=== PATIENT | male | born 1985 | race Caucasian/White ===

== ENCOUNTER 2019-10-02 11:03 | Observation (INO) ==
--- NOTE | 2019-10-02 11:24 | Emergency Department Note ---
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 The patient was walking back from the [place] when he began experiencing chest pain along with sweating. He then went to the nurses station where the checked an EKG. There was concern that the patient's heart rate was above 200. When the patient laid down for the EKG his symptoms was quickly resolved. EMS was called and the patient was brought here to the emergency department. Patient denies any chest pain currently. He has a family history of his grandfather having bypass when his grandfather was in his 60s. The patient denies smoking. Home Medications Home Medications Medication Instructions Recorded Confirmed Type No Known Home Medications 10/02/19 10/02/19 History Allergies Allergy/AdvReac Type Severity Reaction Status Date / Time No Known Allergies Allergy Unverified 10/02/19 11:46 Past Med/Surg History Social History Feels Safe at Home: Yes Smoking Status: Never smoker Review of Systems A total of 10 systems reviewed and were otherwise negative Physical Exam Vital Signs Vital Signs - 24 hr 10/02/19 11:30 10/02/19 11:38 10/02/19 12:00 Temperature 37.5 C Temperature Source Oral Pulse Rate 96 H 93 H Pulse Rate from SpO2 Sensor 95 H Respiratory Rate 16 17 Respiratory Effort / Characteristics Non-Labored Spontaneous Respiratory Depth Normal Respiratory Pattern Regular Blood Pressure 157/104 H 166/97 H Blood Pressure Mean 123 110 Blood Pressure Position Sitting Pulse Oximetry 97 97 95 Oxygen Delivery Method Room Air Room Air Oxygen Flow Rate 97 Sepsis Recent Fever Within 48 Hours No Sepsis New/Unexplained Change in Mental Status No Sepsis Action Taken by Nursing No Action Required 10/02/19 12:30 10/02/19 13:00 10/02/19 13:01 Temperature Temperature Source Pulse Rate 93 H 86 92 H Pulse Rate from SpO2 Sensor 96 H 91 H 92 H Respiratory Rate 17 18 20 Respiratory Effort / Characteristics Respiratory Depth Respiratory Pattern Blood Pressure 147/89 H 139/83 Blood Pressure Mean 104 95 Blood Pressure Position Pulse Oximetry 96 95 94 Oxygen Delivery Method Oxygen Flow Rate Sepsis Recent Fever Within 48 Hours Sepsis New/Unexplained Change in Mental Status Sepsis Action Taken by Nursing 10/02/19 13:30 10/02/19 13:31 Temperature Temperature Source Pulse Rate 95 H 92 H Pulse Rate from SpO2 Sensor 97 H 93 H Respiratory Rate 15 19 Respiratory Effort / Characteristics Respiratory Depth Respiratory Pattern Blood Pressure 129/85 Blood Pressure Mean 105 Blood Pressure Position Pulse Oximetry 95 95 Oxygen Delivery Method Oxygen Flow Rate Sepsis Recent Fever Within 48 Hours Sepsis New/Unexplained Change in Mental Status Sepsis Action Taken by Nursing GENERAL: Patient is a healthy-appearing well-nourished male HEAD: Normocephalic atraumatic EYES: Ocular movements intact pupils equal and react to light OROPHARYNX mucous membranes are moist no exudates present no erythema or edema present NECK: Supple no nuchal rigidity CHEST: Good equal expansion LUNGS: Clear and equal to auscultation CARDIAC: Normal S1 and S2 ABDOMEN: Soft nontender no guarding BACK: No CVA tenderness EXTREMITIES: No pain upon palpation normal muscle strength in all groups no clubbing cyanosis or edema NEURO: Patient is following commands is answering questions appropriately. Alert and oriented x3 Cranial Nerves 2-12 grossly intact Medical Decision Making Differential Diagnosis Cardiac ischemia, aortic dissection, pulmonary embolism, pneumothorax, pneumonia, pericarditis, myocarditis, esophageal rupture, GERD, cholecystitis, pancreatitis, musculoskeletal, as well as other pathologies. Medical Records Attestation: I reviewed the patient's medical records. Home Medications Current Medication List: was personally reviewed by me Laboratory Data Attestation: I reviewed the patient's lab results. Result diagrams: 10/02/19 11:35 10/02/19 11:35 Lab Results 10/02/19 10/02/19 10/02/19 Range/Units 11:35 11:35 11:35 WBC 9.44 (4.8-10.8) K/uL RBC 5.17 (4.7-6.1) M/uL Hgb 16.0 (14.0-18.0) g/dL Hct 44.7 (42-52) % MCV 86.5 (80-100) fL MCH 30.9 (25-34) pg MCHC 35.8 (32-36) g/dL RDW Std Deviation 38.4 (36.4-46.3) fL RDW Coeff of Linda 12.1 (11.5-14.5) % Plt Count 138 (130-400) K/uL MPV 11.1 H (7.4-10.4) fL Immature Gran % (Auto) 0.4 % Neut % (Auto) 69.5 % Lymph % (Auto) 19.7 % Otero % (Auto) 8.6 % Eos % (Auto) 1.5 % Baso % (Auto) 0.3 % Immature Gran # (Auto) 0.04 H (0.00-0.02) K/uL Neut # (Auto) 6.56 H (1.4-6.5) K/uL Lymph # (Auto) 1.86 (1.2-3.4) K/uL Otero # (Auto) 0.81 H (0.11-0.59) K/uL Eos # (Auto) 0.14 (0-0.5) K/uL Baso # (Auto) 0.03 (0-0.2) K/uL PT 11.1 (9.0-12.0) Seconds INR 1.1 (0.9-1.1) APTT 30.0 (21.0-31.0) Seconds PTT Ratio 1.1 D-Dimer 360 (0-500) ug/L FEU Sodium 138 (136-145) mmol/L Potassium 3.8 (3.5-5.1) mmol/L Chloride 108 H (98-107) mmol/L Carbon Dioxide 24 (21-32) mmol/L Anion Gap 7.0 (3-11) BUN 14 (7-18) mg/dl Creatinine 0.96 (0.6-1.4) mg/dl Est Cr Clr Drug Dosing 147.3 ml/min Est GFR ( Amer) 117.4 Est GFR (Non-Af Amer) 101.3 BUN/Creatinine Ratio 14.9 (10-20) Glucose 112 H (70-99) mg/dl Calcium 9.7 (8.5-10.1) mg/dl Total Bilirubin 0.7 (0.2-1) mg/dl AST 21 (15-37) U/L ALT 48 (12-78) U/L Alkaline Phosphatase 80 (45-117) U/L Total Creatine Kinase 69 (39-308) U/L CK-MB (CK-2) < 1.0 (0.5-3.6) ng/ml CK/CKMB % Calc TNP Troponin I < 0.015 (0-0.045) ng/ml Total Protein 7.8 (6.4-8.2) gm/dl Albumin 4.0 (3.4-5.0) gm/dl Globulin 3.8 (2.5-4.0) gm/dl Albumin/Globulin Ratio 1.0 (0.9-2) Lipase 61 L (73-393) U/L 10/02/19 Range/Units 12:50 WBC (4.8-10.8) K/uL RBC (4.7-6.1) M/uL Hgb (14.0-18.0) g/dL Hct (42-52) % MCV (80-100) fL MCH (25-34) pg MCHC (32-36) g/dL RDW Std Deviation (36.4-46.3) fL RDW Coeff of Linda (11.5-14.5) % Plt Count (130-400) K/uL MPV (7.4-10.4) fL Immature Gran % (Auto) % Neut % (Auto) % Lymph % (Auto) % Otero % (Auto) % Eos % (Auto) % Baso % (Auto) % Immature Gran # (Auto) (0.00-0.02) K/uL Neut # (Auto) (1.4-6.5) K/uL Lymph # (Auto) (1.2-3.4) K/uL Otero # (Auto) (0.11-0.59) K/uL Eos # (Auto) (0-0.5) K/uL Baso # (Auto) (0-0.2) K/uL PT (9.0-12.0) Seconds INR (0.9-1.1) APTT (21.0-31.0) Seconds PTT Ratio D-Dimer (0-500) ug/L FEU Sodium (136-145) mmol/L Potassium (3.5-5.1) mmol/L Chloride (98-107) mmol/L Carbon Dioxide (21-32) mmol/L Anion Gap (3-11) BUN (7-18) mg/dl Creatinine (0.6-1.4) mg/dl Est Cr Clr Drug Dosing ml/min Est GFR ( Amer) Est GFR (Non-Af Amer) BUN/Creatinine Ratio (10-20) Glucose (70-99) mg/dl Calcium (8.5-10.1) mg/dl Total Bilirubin (0.2-1) mg/dl AST (15-37) U/L ALT (12-78) U/L Alkaline Phosphatase (45-117) U/L Total Creatine Kinase (39-308) U/L CK-MB (CK-2) (0.5-3.6) ng/ml CK/CKMB % Calc Troponin I < 0.015 (0-0.045) ng/ml Total Protein (6.4-8.2) gm/dl Albumin (3.4-5.0) gm/dl Globulin (2.5-4.0) gm/dl Albumin/Globulin Ratio (0.9-2) Lipase (73-393) U/L Imaging Data Attestation: I personally reviewed and interpreted this imaging study as follows: ECG Data Attestation: I personally reviewed and interpreted this ECG as follows: Indication: + chest pain Rate (beats per minute): 95 Rhythm: + normal sinus ECG Intervals/blocks: + Normal QT-c (429) ECG [facility] [facility]: + Normal ECG ST segments: no ST depression and no ST elevation Comparison ECG Date: no prior available Additional Comments: Repeat EKG shows a normal sinus rhythm with a rate of [address] elevation or depression QTC is 430. This EKG is unchanged from the previous MDM Narrative Cardiac monitoring: An order was placed for continuous cardiac monitoring. The monitor shows a rate of 60 with Normal Sinus rhythm. This is a 34-year-old male who presents emergency department complaining of chest pain. Upon arrival to the emergency department the patient is pain-free. He was placed on the monitoring manager. Serial troponins and serial EKGs were performed on this patient however they remain unchanged. His d-dimer is negative. I did discuss all these findings with the patient and his he would feel more comfortable with being admitted and observed. I do feel that this is reasonable I did discuss the case with the hospitalist service who did agree to admit the patient. Patient and are in agreement with the tr eatment plan. Impression & Plan Chest pain Discharge Plan Visit Data Chief Complaint: Cardiac Assessment ED Provider: Pravin Nolasco Discharge Problem: Chest pain Forms Stand Alone Forms: My [facility] Consumer Prescriptions Prescriptions: No Action No Known Home Medications RF: 0 Discharge Problem: Chest pain Qualifiers: Chest pain type: unspecified Qualified Code(s): R07.9 - Chest pain, unspecified
[2019-10-02 11:51] LABS: Basophils # (auto) 0.03 K/uL (0-0.2); Basophils % (auto) 0.3 %; Eosinophils # (auto) 0.14 K/uL (0-0.5); Eosinophils % (auto) 1.5 %; Hematocrit (blood only) 44.7 % (42-52); Immature Granulocytes # (auto) 0.04 K/uL (0.00-0.02); Immature Granulocytes % (auto) 0.4 %; Lymphocytes # (auto) 1.86 K/uL (1.2-3.4); Lymphocytes % (auto) 19.7 %; Mean Corpuscular Hemoglobin 30.9 pg (25-34); Mean Corpuscular Hgb Conc 35.8 g/dL (32-36); Mean Corpuscular Volume 86.5 fL (80-100); Mean Platelet Volume 11.1 fL (7.4-10.4); Monocytes # (auto) 0.81 K/uL (0.11-0.59); Monocytes % (auto) 8.6 %; Neutrophils # (auto) 6.56 K/uL (1.4-6.5); Neutrophils % (auto) 69.5 %; Platelet Count 138 K/uL (130-400); RDW Coefficient of Variation 12.1 % (11.5-14.5); RDW Standard Deviation 38.4 fL (36.4-46.3); Red Blood Count 5.17 M/uL (4.7-6.1); White Blood Count 9.44 K/uL (4.8-10.8)
--- NOTE | 2019-10-02 11:54 | XRay Report ---
SINGLE VIEW CHEST CLINICAL HISTORY: Atypical chest pain. FINDINGS: An AP, portable, upright chest radiograph is obtained No prior studies are available for co mparison at the time of dictation. The cardiomediastinal silhouette is unremarkable. There is minimal left basilar atelectasis. The lungs and pleural spaces are otherwise clear. An accessory azygous fis sure is incidentally noted. No pneumothorax is seen. The bony thorax is grossly intact. IMPRESSION: No active disease in the chest. ACT 112: Negative or not required by law. Electronically signed by: Adam Martin M.D. 10/02/2019 11:53 AM
[2019-10-02 12:04] LABS: D Dimer 360 ug/L FEU (0-500); INR 1.1 (0.9-1.1); Partial Thromboplastin Ratio 1.1; Prothrombin Time 11.1 Seconds (9.0-12.0)
[2019-10-02 12:09] LABS: Alanine Aminotransferase 48 U/L (12-78); Aspartate Aminotransferase 21 U/L (15-37); BUN Creatinine Ratio 14.9 (10-20); Blood Urea Nitrogen 14 mg/dl (7-18); Calcium 9.7 mg/dl (8.5-10.1); Carbon Dioxide 24 mmol/L (21-32); Chloride 108 mmol/L (98-107); Creatinine Clr Calc Pharmacy 147.3 ml/min; Est GFR (African American) 117.4; Est GFR (Non-African American) 101.3; Glucose 112 mg/dl (70-99); Lipase 61 U/L (73-393); Potassium 3.8 mmol/L (3.5-5.1); Sodium 138 mmol/L (136-145)
[2019-10-02 12:14] LABS: Alkaline Phosphatase 80 U/L (45-117); Bilirubin,Total 0.7 mg/dl (0.2-1); Creatine Kinase 69 U/L (39-308); Creatine Kinase MB < 1.0 ng/ml (0.5-3.6); Globulin 3.8 gm/dl (2.5-4.0); Total Protein 7.8 gm/dl (6.4-8.2); Troponin I < 0.015 ng/ml (0-0.045)
--- NOTE | 2019-10-02 14:11 | Communication Note ---
Date of Service: October 02, 2019 Attending Addendum: care coordinated with CAMERON Richards. 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, when all of a sudden he felt lightheaded, vision became black for 2 seconds, then developed substernal chest tightness, palpitations he was checked by their medical personnel and HR was noted to be in the 200's per finger pulse ox meter by the time EKG was done at his worksite's RN station, EKG was apparently normal his chest tightness lasted about 30 minutes does admit to drinking 2 cups of coffee, 2 bottles of soda, and green tea per day no other symptoms VS noted and reviewed oriented x 3, not in distress, speaks in sentences with no effort nor accessory muscle use normal rate, regular rhythm, no murmurs clear breath sounds bilaterally non distended, soft, nontender no bipedal edema, erythema, warmth no neuro deficits WBC 9.4 Hg 16.0 Crea 0.96 EKG: normal sinus rhythm, HR 90 ASSESSMENT AND PLAN EPISODE OF CHEST PAIN, POSSIBLE TACHYARRHYTHMIA - from excessive caffeine intake? - check echo TSH monitor in Telemetry unit Capacitor Repairer to be consulted other diagnoses and plan of care as per CAMERON Richards notes Sukh Santamaria MD
[2019-10-02 14:34] LABS: Magnesium 1.9 mg/dl (1.8-2.4); Thyroid Stimulating Hormone 1.01 uIu/ml (0.300-4.500)
--- NOTE | 2019-10-02 14:34 | History & Physical Report ---
Date of Service October 02, 2019 Assessment & Plan (1) Chest pain: (2) Lightheadedness: Pt with episode of chest tightness, lightheadedness, diaphoresis, and heart racing x 30 minutes. Told HR was in 240s, but unable to take manual pulse/BP. Per pt EKG at intermediate was normal. EKG, troponin, lab work here all normal. Ddx: Tachy arrhythmia including SVT, aflutter, afib, thyroid disease, ACS Pt risk factors include excessive caffeine use, +Paternal GF MO/CABG in 50s Admit to PCU for further monitoring on telemetry obtain TSH/Mag echocardiogram trend troponin, repeat ecg consult cardiology if event doesn't recur he may need outpt ziopatch History of Present Illness Chief Complaint: Chest pain x30 minutes. Primary Care Provider: Selvin Olson MD This is a 34-year-old male who has no significant past medical history who presents to ED secondary to chest pain x30 minutes. 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 Associated with this was substernal, nonradiating, chest pain. He described the pain as a tightness. He also felt associated applications and diaphoresis. He denies ever feeling anything similar in the past. Because of symptoms he reported to nurse on duty he was unable to get a blood pressure or pulse. She thought his pulse was in the, "240s," but this was not documented. Whenever he went to lay down for an EKG his symptoms abruptly stopped and he returned to normal. He denies any cirilo syncope, shortness of breath, cough, hemoptysis, nausea. He did not take anything to help relieve his symptoms as a relieved on own. He denies any recent illness. He denies any fever, chills, abdominal pain, change in bowel or urinary habits. His appetite is otherwise been stable. He denies any tobacco or alcohol use. He did frequently drink red bowls but has not had any in the past 2 to 3 weeks. He does drink caffeine. His caffeine consumption includes 2- 16/20oz coffee cups in the morning. He also drinks approximately 2-16 ounce caffeinated sodas as well as occasional diet green tea. This morning he only had water to drink and he has not had anything to eat yet today. He denies any known chronic medical conditions and does not take any medications. 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 He denies feeling symptoms of chest pain or palpitations in the past. His paternal grandfather did have an MO and CABG in his 50s. Denies any familial history of tachyarrhythmias or pacemakers. Discussed case with ED provider. Upon arrival to ED patient overall felt back to baseline. He was hemodynamically stable in ED. His CBC and CMP were relative unremarkable. Troponin WNL. 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 Beliefs That Will Affect Care: None Current Living Situation: Spouse and Family Other Information That Helps Us Care for You: No Feels Safe at Home: Yes Safety Concerns: Feels Safe At This Time Smoking Status: Never smoker Hx Alcohol Use: No Hx Substance Use: No Review of Systems Review of Systems: All systems reviewed & are unremarkable except as noted in HPI & below Physical Exam Physical Exam: Constitutional: WD/WN, vitals as above, NAD, sitting up in bed, pleasant, conversing easily Head: Normocephalic, Atraumatic Eyes: PERRL, conjunctivae normal, anicteric sclerae ENMT: external ear and nose normal, oropharynx normal Neck: trachea midline, no thyromegaly normal visual inspection Respiratory: normal respiratory effort, lungs clear to auscultation, no wheeze, rales, rhonchi. Normal insp/exp effort, no accessory muscle use Cardiovascular: RRR, no murmur, no edema Vessels: no JVD or carotid bruit Chest: normal inspection of chest Abdomen: normal bowel sounds, soft, nontender, no hepatosplenomegaly Musculoskeletal: no cyanosis or clubbing, extremities motor strength 5/5 Skin: no rashes, warm and dry normal turgor Neurologic: PERRL, EOMI, accommodation nl, no face palsy, no dysarthria CN's II-XI intact bilaterally and moves all extremities Psychiatric: A+Ox3, euthymic affect Lymphatic: no cervical or axillary lymphadenopathy : deferred Results & Data Results & Data ([facility]) Vital Signs (Past 12 Hours) Vital Signs Temp Pulse Resp BP Pulse Ox 10/02/19 13:31 92 H 19 95 10/02/19 13:30 95 H 15 129/85 95 10/02/19 13:01 92 H 20 94 10/02/19 13:00 86 18 139/83 95 10/02/19 12:30 93 H 17 147/89 H 96 10/02/19 12:00 93 H 17 166/97 H 95 10/02/19 11:38 97 10/02/19 11:30 37.5 C 96 H 16 157/104 H 97 Laboratory Results Short CBC 10/02/19 10/02/19 10/02/19 Range/Units 11:35 11:35 12:50 WBC 9.44 (4.8-10.8) K/uL Hgb 16.0 (14.0-18.0) g/dL Hct 44.7 (42-52) % Plt Count 138 (130-400) K/uL Troponin I < 0.015 < 0.015 (0-0.045) ng/ml BMP 10/02/19 11:35 Sodium 138 Potassium 3.8 Chloride 108 H Carbon Dioxide 24 BUN 14 Creatinine 0.96 Glucose 112 H Calcium 9.7 Cardiac Enzymes 10/02/19 10/02/19 Range/Units 11:35 12:50 Total Creatine Kinase 69 (39-308) U/L CK-MB (CK-2) < 1.0 (0.5-3.6) ng/ml Troponin I < 0.015 < 0.015 (0-0.045) ng/ml Liver Function 10/02/19 Range/Units 11:35 Total Bilirubin 0.7 (0.2-1) mg/dl AST 21 (15-37) U/L ALT 48 (12-78) U/L Alkaline Phosphatase 80 (45-117) U/L Albumin 4.0 (3.4-5.0) gm/dl Diagnostic Findings CXR: IMPRESSION: No active disease in the chest. ECG Rate (beats per minute): 90 Rhythm: normal sinus Code Status & VTE Plan Code Status Full Code VTE Prophylaxis Plan VTE Prophylaxis will be ordered: No Supervising Physician Co-Signing Physician Notes Please see supplemental communication note. Sukh Santamaria MD (1) Chest pain Chest pain type: unspecified Qualified Code(s): R07.9 - Chest pain, unspecified
[2019-10-02] MEDS ORDERED: ACETAMINOPHEN 325 MG TAB PO PRN (15:19)
[2019-10-02] MEDS ORDERED: ONDANSETRON INJ 2 MG/ML 2 ML VIAL IV PRN (15:19)
[2019-10-02] MEDS ORDERED: NITROGLYCERIN SL 0.4 MG/TAB TAB SL PRN (15:19)
--- NOTE | 2019-10-02 15:57 | Electrocardiogram Report ---
Test Reason : Blood Pressure : / mmHG Vent. Rate : 090 BPM Atrial Rate : 090 BPM P-R Int : 134 ms QRS Dur : 084 ms QT Int : 352 ms P-R-T Axes : 022 -07 010 degrees QTc Int : 430 ms Normal sinus rhythm Voltage criteria for left ventricular hypertrophy Abnormal ECG When compared with ECG of 02-OCT-2019 11:14, (unconfirmed) No significant change was found Confirmed by Efra Busby ([id number]) on 10/02/2019 3:57:22 PM Referred By: REFERRED SELF Confirmed By:Surya Busby
--- NOTE | 2019-10-02 16:00 | Electrocardiogram Report ---
Test Reason : Blood Pressure : / mmHG Vent. Rate : 095 BPM Atrial Rate : 095 BPM P-R Int : 116 ms QRS Dur : 078 ms QT Int : 342 ms P-R-T Axes : 021 -06 034 degrees QTc Int : 429 ms Poor data quality, interpretation may be adversely affected Normal sinus rhythm Moderate voltage criteria for LVH, may be normal variant Borderline ECG No previous ECGs available Confirmed by Efra Busby ([id number]) on 10/02/2019 4:00:00 PM Referred By: Confirmed By:Surya Busby
--- NOTE | 2019-10-02 16:15 | Cardiology Consultation ---
Date of Consultation October 02, 2019 Assessment & Plan (1) Chest pain: (2) Palpitation: (3) Near syncope: 34-year-old patient admitted with episode of tachypalpitations, associated chest tightness, and fleeting near syncope. Cardiovascular evaluation thus far demonstrating normal ECG, negative cardiac enzymes, and sinus rhythm per telemetry monitoring. No evidence of thyroid dysfunction or electrolyte derangement. Resting 2D transthoracic echocardiogram is pending at this time. Repeat cardiac enzymes x3 sets for completeness. If telemetry monitoring, cardiac enzymes, and resting 2D transthoracic echocardiogram are unrevealing, recommend 14-day outpatient ZIO monitor for further evaluation. Served in treatment measures including limiting caffeine intake, maintaining adequate hydration, as well as avoiding excessive alcohol intake discussed with patient. History of Present Illness Reason for Consultation: Palpitations, near syncope, chest pain Requesting Physician: Dr. 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 He developed palpitations and associated chest tightness earlier today. He was standing at the gate when he noted the sudden onset set of rapid heart rate, diaphoresis, lightheadedness, and chest tightness. Sensation of lightheadedness was fleeting, lasting only a few seconds. The palpitations, diaphoresis, and chest discomfort lasted approximately 20 minutes. Denies any prior episodes of palpitations or chest tightness in the past. In general he is an active person. Denies exertional chest pain or unusual shortness of breath. Denies personal history of diabetes, hypertension, dyslipidemia, dysrhythmia, congestive heart failure, or rheumatic fever as a child. Patient evaluated in the emergency department and subsequently admitted to the progressive care unit. Telemetry reveals sinus rhythm and sinus tachycardia at a rate of approximately [address]-T wave changes per baseline ECG. 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 Required: No Beliefs That Will Affect Care: None Current Living Situation: Spouse and Family Other Information That Helps Us Care for You: No Feels Safe at Home: Yes Safety Concerns: Feels Safe At This Time Smoking Status: Never smoker Hx Alcohol Use: No Hx Substance Use: No Review of Systems Review of Systems: All systems reviewed & are unremarkable except as noted in HPI & below Physical Exam Constitutional: well developed, well nourished and + obese Respiratory: normal respiratory effort, lungs clear to auscultation Auscultation: no crackles, no rales, no rhonchi and no wheezes Cardiovascular: Rate/Rhythm: regular rate and regular rhythm Heart Sounds: normal S1 and normal S2; no gallop, no murmur and no cardiac rub Palpation: normal PMI Vessels: dorsalis pedis pulses present and radial pulses present; no JVD and no carotid bruit Extremities: no edema Gastrointestinal (Abdomen): Inspection/Auscultation: abdomen normal to inspection and normal bowel sounds; abdomen not distended Percus maikel/Palpation: abdomen soft; abdomen nontender, no guarding and abdomen not rigid Musculoskeletal: no cyanosis or clubbing, extremities motor strength 5/5 Skin: no rashes, warm and dry Neurologic: CN's II-XI intact bilaterally and moves all extremities; no focal motor deficits Speech / Cognition: normal speech Psychiatric: A+Ox3, euthymic affect Results & Data ([facility]) Vital Signs (Past 12 Hours) Vital Signs Temp Pulse Pulse Resp BP BP Pulse Ox 10/02/19 15:25 93 H 10/02/19 15:20 36.4 C L 87 20 147/93 H 96 10/02/19 14:24 88 20 135/75 95 10/02/19 13:31 92 H 19 95 10/02/19 13:30 95 H 15 129/85 95 10/02/19 13:01 92 H 20 94 10/02/19 13:00 86 18 139/83 95 10/02/19 12:30 93 H 17 147/89 H 96 10/02/19 12:00 93 H 17 166/97 H 95 10/02/19 11:38 97 10/02/19 11:30 37.5 C 96 H 16 157/104 H 97 (1) Chest pain Chest pain type: unspecified Qualified Code(s): R07.9 - Chest pain, unspecified
[2019-10-03 05:54] LABS: Hematocrit (blood only) 44.6 % (42-52); Hemoglobin 15.6 g/dL (14.0-18.0); Mean Corpuscular Hemoglobin 29.9 pg (25-34); Mean Corpuscular Volume 85.6 fL (80-100); Mean Platelet Volume 10.6 fL (7.4-10.4); Platelet Count 139 K/uL (130-400); RDW Coefficient of Variation 12.1 % (11.5-14.5); RDW Standard Deviation 37.8 fL (36.4-46.3); Red Blood Count 5.21 M/uL (4.7-6.1); White Blood Count 9.22 K/uL (4.8-10.8)
[2019-10-03 06:17] LABS: BUN Creatinine Ratio 16.2 (10-20); Calcium 9.1 mg/dl (8.5-10.1); Creatinine Clr Calc Pharmacy 141.3 ml/min; Est GFR (African American) 115.9; Potassium 3.9 mmol/L (3.5-5.1)
--- NOTE | 2019-10-03 12:13 | Cardiology Progress Note ---
Date of Service October 03, 2019 Assessment & Plan (1) Palpitation: 34-year-old who presented with tachypalpitations. History suspicious for an atrial arrhythmia question atrial flutter given quoted rate though no documentation. Significantly hypertensive on presentation and persistently so since admission. History of possible hypertension dating back to teenage. Since admission no arrhythmias normal structural heart noted on echocardiogram no EKG abnormalities or preexcitation Recommendations. Would begin 2 drug regimen for hypertension as well as potential arrhythmias. Begin lisinopril 5 mg p.o. daily, metoprolol succinate 12.5 mg p.o. daily ZIO Patch event monitor will be placed next week to assess for frequency and presence of arrhythmias. We will arrange cardiac follow-up (2) HTN (hypertension): Subjective Patient ambulatory in room without difficulties. Patient was seen and examined, chart, medications, telemetry reviewed. No complaints or issues overnight no chest pains or dizziness no lightheadedness. No arrhythmias on telemetry. Patient ambulatory in room without difficulties. Blood pressure still elevated this morning. Notes evaluation for hypertension as a teenager but currently not on medications Echocardiogram with normal structural heart Review of Systems Review of Systems: All systems reviewed & are unremarkable except as noted in HPI & below Physical Exam Constitutional: WD/WN, vitals as above Eyes: PERRL, conjunctivae normal, anicteric sclerae ENMT: external ear and nose normal, oropharynx normal Neck: trachea midline, no thyromegaly Respiratory: normal respiratory effort, lungs clear to auscultation Cardiovascular: Rate/Rhythm: regular rate and regular rhythm Heart Sounds: normal S1 and normal S2; no gallop and no murmur Palpation: normal PMI Vessels: normal carotid upstroke and radial pulses present; no JVD and no carotid bruit Extremities: no edema Gastrointestinal (Abdomen): normal bowel sounds, soft, nontender, no hepatosplenomegaly Musculoskeletal: no cyanosis or clubbing, extremities motor strength 5/5 Skin: no rashes, warm and dry Neurologic: PERRL, EOMI, accommodation nl, no face palsy, no dysarthria Psychiatric: A+Ox3, euthymic affect Results & Data Vital Signs (Past 12 Hours) Vital Signs Temp Pulse Pulse Resp BP Pulse Ox 10/03/19 07:44 36.7 C 83 18 145/86 H 96 10/03/19 04:23 36.4 C L 75 18 143/97 H 97 10/03/19 01:13 72 Laboratory Results Laboratory Results - last 24 hr 10/02/19 10/02/19 10/02/19 11:35 11:35 12:50 WBC RBC Hgb Hct MCV MCH MCHC RDW Std Deviation RDW Coeff of Linda Plt Count MPV Sodium 138 Potassium 3.8 Chloride 108 H Carbon Dioxide 24 Anion Gap 7.0 BUN 14 Creatinine 0.96 Est Cr Clr Drug Dosing 147.3 Est GFR ( Amer) 117.4 Est GFR (Non-Af Amer) 101.3 BUN/Creatinine Ratio 14.9 Glucose 112 H Calcium 9.7 Magnesium 1.9 Total Bilirubin 0.7 AST 21 ALT 48 Alkaline Phosphatase 80 Total Creatine Kinase 69 CK-MB (CK-2) < 1.0 CK/CKMB % Calc TNP Troponin I < 0.015 < 0.015 Total Protein 7.8 Albumin 4.0 Globulin 3.8 Albumin/Globulin Ratio 1.0 Lipase 61 L TSH 1.010 10/02/19 10/02/19 10/03/19 16:43 22:57 05:28 WBC 9.22 RBC 5.21 Hgb 15.6 Hct 44.6 MCV 85.6 MCH 29.9 MCHC 35.0 RDW Std Deviation 37.8 RDW Coeff of Linda 12.1 Plt Count 139 MPV 10.6 H Sodium Potassium Chloride Carbon Dioxide Anion Gap BUN Creatinine Est Cr Clr Drug Dosing Est GFR ( Amer) Est GFR (Non-Af Amer) BUN/Creatinine Ratio Glucose Calcium Magnesium Total Bilirubin AST ALT Alkaline Phosphatase Total Creatine Kinase CK-MB (CK-2) CK/CKMB % Calc Troponin I < 0.015 < 0.015 Total Protein Albumin Globulin Albumin/Globulin Ratio Lipase TSH 10/03/19 05:28 WBC RBC Hgb Hct MCV MCH MCHC RDW Std Deviation RDW Coeff of Linda Plt Count MPV Sodium 136 Potassium 3.9 Chloride 107 Carbon Dioxide 27 Anion Gap 2.0 L BUN 16 Creatinine 0.97 Est Cr Clr Drug Dosing 141.3 Est GFR ( Amer) 115.9 Est GFR (Non-Af Amer) 100.0 BUN/Creatinine Ratio 16.2 Glucose 110 H Calcium 9.1 Magnesium Total Bilirubin AST ALT Alkaline Phosphatase Total Creatine Kinase CK-MB (CK-2) CK/CKMB % Calc Troponin I Total Protein Albumin Globulin Albumin/Globulin Ratio Lipase TSH 1321
--- NOTE | 2019-10-03 12:48 | Discharge Summary ---
Date of Service October 03, 2019 Admission HPI Per Admitting Provider This is a 34-year-old male who has no significant past medical history who presents to ED secondary to chest pain x30 minutes. 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 Associated with this was substernal, nonradiating, chest pain. He described the pain as a tightness. He also felt associated applications and diaphoresis. He denies ever feeling anything similar in the past. Because of symptoms he reported to nurse on duty he was unable to get a blood pressure or pulse. She t hought his pulse was in the, "240s," but this was not documented. Whenever he went to lay down for an EKG his symptoms abruptly stopped and he returned to normal. He denies any cirilo syncope, shortness of breath, cough, hemoptysis, nausea. He did not take anything to help relieve his symptoms as a relieved on own. He denies any recent illness. He denies any fever, chills, abdominal pain, change in bowel or urinary habits. His appetite is otherwise been stable. He denies any tobacco or alcohol use. He did frequently drink red bowls but has not had any in the past 2 to 3 weeks. He does drink caffeine. His caffeine consumption includes 2- 16/20oz coffee cups in the morning. He also drinks approximately 2-16 ounce caffeinated sodas as well as occasional diet green tea. This morning he only had water to drink and he has not had anything to eat yet today. He denies any known chronic medical conditions and does not take any medications. 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 He denies feeling symptoms of chest pain or palpitations in the past. His paternal grandfather did have an ND and CABG in his 50s. Denies any familial history of tachyarrhythmias or pacemakers. Discussed case with ED provider. Upon arrival to ED patient overall felt back to baseline. He was hemodynamically stable in ED. His CBC and CMP were relative unremarkable. Troponin WNL. Principal Diagnosis Atypical chest pain HTN Palpitations Discharge Data Allergies Allergy/AdvReac Type Severity Reaction Status Date / Time No Known Allergies Allergy Unverified 10/02/19 11:46 Consultations 10/02/19 13:35 ED Decision to Admit Stat 10/02/19 14:08 Consult Cardiology Routine Hospital Course (1) Chest pain: (2) HTN (hypertension): (3) Palpitation: 34-year-old man was seen in the ER after an episode of palpitations and chest tightness for approximately 30 minutes. He was told his heart rate was in the 240s but was unable to take an manual pulse or blood pressure. Per patient the EKG at his place of work was normal. In the ER and EKG, troponin and other lab work were all normal. His blood pressure was 166/105. He reported a resolution of symptoms shortly after arrival to the hospital. An echocardiogram was performed and within normal limits. A TSH and magnesium were ordered and normal. He had negative serial troponins which were trended overnight. Cardiology was consulted and recommended a ZIO patch as there was suspicion for an atrial arrhythmia given the quoted heart rate despite any documentation to support this. He was also notably significantly hypertensive on presentation and this persisted throughout his hospitalization with recommendations to begin a two drug regimen including lisinopril 5 mg daily and metoprolol succinate 12.5 mg p.o. daily. An outpatient event monitor was recommended to assess for frequency and presence of arrhythmias. Cardiology follow-up was recommended as outpatient. Continue to mentate and ambulate at baseline and was oxygenating well on room air. He was asymptomatic and stable for discharge home. Physical exam was unremarkable at time of discharge. Close primary care follow-up was recommended to ensure blood work monitoring of kidney function and electrolytes and to titrate blood pressure medications as needed for goal less than 140/90 on average. Total Time Total Time Spent Total Time Spent (In Minutes): 60 Total Time Includes: Examination of the Patient, Discharge Planning, Medication Reconciliation and Communication With Other Providers Discharge Plan Discharge Items Patient Disposition: Home - Self-Care Reason For Visit: CHEST PAIN Discharge Diagnosis: Atypical chest pain HTN Palpitations Condition on Discharge: Good Activity: Resume your previous activity Non-emergency contact: Primary Care Provider Call non-emergency contact if: you have any medication questions, your symptoms worsen, your pain is not controlled, your pain is worsening, your pain is unusual for you, your pain is concerning for you and you have a fever Follow-up/Referrals: Selvin Olson MD [Primary Care Provider] - Diet: Low Sodium (2gm) Addtl Attending Provider Instructions: Please take all medications as instructed on discharge list below. You are being placed on two new medications to help control your blood pressure. Please ensure a 1-2 week follow-up with your primary care physician to recheck nonfasting bloodwork to monitor electrolytes and kidney function. Please ensure you berry picker an event monitor (ZIO patch) as instructed by Dr. Dorsey. A follow-up with primary care or Cardiology would be recommended once this is completed in a few weeks to review the results. It was a pleasure taking care of you! Please call if you have any questions or problems. You can reach a [facility] hospitalist on duty at [facility] 24 hours a day by calling [phone]. Take care of yourself. Yaquelin Walker DO [facility] Pending Studies at Discharge: No Stand-Alone Forms: Work/School Release (ED), [facility], Smoking Cessation Medications and DC Order Prescriptions: New lisinopril 5 mg tablet 5 mg PO DAILY Qty: 30 RF: 1 metoprolol succinate [Toprol XL] 25 mg tablet extended release 24 hr 12.5 mg PO DAILY Qty: 30 RF: 1 Discharge Orders: Discharge Order (Routine); Ordered 10/03/19 Ordered By: Yaquelin Walker Admission Data Admit Date/Time: 10/02/19 13:43 Attending Provider: Yaquelin Walker Admit Provider: Sukh Santamaria Primary Care Provider: Selvin Olson Other Providers: Sukh Santamaria ; Armando Benavidez
--- NOTE | 2019-10-03 12:57 | Electrocardiogram Report ---
Test Reason : Blood Pressure : / mmHG Vent. Rate : 078 BPM Atrial Rate : 078 BPM P-R Int : 130 ms QRS Dur : 086 ms QT Int : 398 ms P-R-T Axes : 026 005 021 degrees QTc Int : 453 ms Normal sinus rhythm Minimal voltage criteria for LVH, may be normal variant Borderline ECG When compared with ECG of 02-OCT-2019 12:50, No significant change was found Confirmed by Renny Lynn ([id number]) on 10/03/2019 12:56:19 PM Referred By: REFERRED SELF Confirmed By:Renny Lynn
== END 2019-10-03 14:14 | disposition home or self-care (01) ==
LOC: 2S 11:03 → ED 11:03 → SUATTDRO 13:43 → 2S 14:24